=== PATIENT | female | born 1995 | race Caucasian/White ===

== ENCOUNTER 2017-10-23 20:14 | Emergency (ER) | payer MEDICAID ==
[~2017-10-23] VITALS: Ht 157.5 cm; Wt 68.2 kg
[2017-10-23] MEDS ORDERED: AMOX500C2 PO (20:28)
[2017-10-23 22:07] VITALS: BP 121/68
== END 2017-10-23 22:08 | disposition home or self-care (01) ==
LOC: EMS 20:16
DX: L98.8 Other specified disorders of the skin and subcutaneous tissue (principal); R51 Headache; Z88.2 Allergy status to sulfonamides; Z88.1 Allergy status to other antibiotic agents; Z79.2 Long term (current) use of antibiotics
CPT/HCPCS: 99283

== ENCOUNTER 2018-09-17 21:16 | Emergency (ER) | payer MEDICAID, OTHER ==
[~2018-09-17] VITALS: Ht 157.5 cm; Wt 68.2 kg
[2018-09-17] MEDS ORDERED: CABE0.5T2 PO (21:57)
[2018-09-17] MEDS ORDERED: CEPHALEXIN MONOHYDRATE 500 MG CAPSULE PO ONE (23:30)
[2018-09-17] MEDS ORDERED: DOXYCYCLINE HYCLATE 100 MG CAPSULE PO ONE (23:30)
[2018-09-17] MEDS ORDERED: BACITRACIN 0.9 GM PACKET OINTMENT TP ONE (23:30)
[2018-09-17 23:40] VITALS: BP 121/76
== END 2018-09-17 23:50 | disposition home or self-care (01) ==
LOC: EMS 21:16
DX: T63.301A Toxic effect of unspecified spider venom, accidental (unintentional), initial encounter (principal); L03.115 Cellulitis of right lower limb; Z88.2 Allergy status to sulfonamides; Z88.8 Allergy status to other drugs, medicaments and biological substances; Y92.89 Other specified places as the place of occurrence of the external cause